=== PATIENT | female | born 1950 | race Caucasian/White ===

== ENCOUNTER → 2016-04-24 | Outpatient (CLI) | payer MEDICARE, BC | LOC: COL.RAD 09:54 | PROVIDERS: Nurse Practitioner | DX: R31.0 Gross hematuria (principal); K63.89 Other specified diseases of intestine | CPT/HCPCS: Q9967 ==

== ENCOUNTER 2016-06-27 17:54 | Emergency (ER) | payer MEDICARE, BC ==
[~2016-06-27] VITALS: Ht 167.6 cm; Wt 66.8 kg
[2016-06-27 17:59] VITALS: TEMP 97.9
[2016-06-27 19:02] LABS: BASO # 0.1 (0.0-0.2); BASO % 0.8 % (0.0-2.0); EOS # 0.6 (0.0-0.7); EOS % 7.1 % (0-4.0); GRAN # 3.2 (1.4-6.5); GRAN % 40.8 % (42.2-75.2); LYMPH # 3.3 (1.2-3.4); LYMPH % 41.5 % (20.0-51.0); MEAN CELL VOLUME 80 fl (80.0-100.0); MEAN CORPUSCULAR HGB CONC 32 g/dl (33.0-37.0); MEAN PLATELET VOLUME 10.6 fl (7.4-10.4); MONO # 0.8 (0.1-0.6); MONO % 9.5 % (1.7-9.3); PLATELET COUNT 262 K/mm3 (130-400); RED BLOOD COUNT 4.31 M/mm3 (4.10-5.30); REDCELL DISTRIBUTION WIDTH-CV 15.3 % (11.5-14.5); WHITE BLOOD COUNT 7.9 K/mm3 (4.8-10.8)
[2016-06-27 19:06] LABS: HEMATOCRIT 34.3 % (37.0-47.0); HEMOGLOBIN 10.8 g/dl (12.5-16.0); MEAN CORPUSCULAR HEMOGLOBIN 25 pg (27.0-31.0)
[2016-06-27 19:28] LABS: ADJUSTED CALCIUM 9.3 mg/dL (8.4-10.2); ALBUMIN 4.3 gm/dL (3.5-5.0); BILIRUBIN,TOTAL 0.5 mg/dL (0.0-1.0); CALCIUM 9.5 mg/dL (8.4-10.2); CREATININE, serum 0.66 mg/dL (0.52-1.25); POTASSIUM 3.6 mmol/L (3.4-5.0)
[2016-06-27 20:36] VITALS: BP 149/71; PULSE 64
== END 2016-06-27 20:36 | disposition home or self-care (01) ==
LOC: COL.ER 17:54
PROVIDERS: Emergency Medicine
DX: M79.651 Pain in right thigh (principal); Z86.718 Personal history of other venous thrombosis and embolism; E11.9 Type 2 diabetes mellitus without complications

== ENCOUNTER → 2016-11-21 | Outpatient (CLI) | payer MEDICARE, BC ==
[~2016-11-21] MED LIST: AMBIEN 5MG TABLE5 MG PO; ASPIRIN 81M81 MG/TA2 PO; GLUCOPHAGE1000 MG PO; GLUCOPHAGE500 MG/TAB PO; HCTZ 25MG TAB25 MG PO; HCTZ12.5TAB PO; KLONOPIN 0.5MG0.5 MG PO; LIPITOR 40MG TA40 MG PO; PRILOTC; PRINIVIL10 MG PO; TENORMIN 5050 MG/TAB PO; ZESTRIL 20MG TA20 MG PO
== END ==
LOC: MC.RAD 10:47
DX: Z12.31 Encounter for screening mammogram for malignant neoplasm of breast (principal)

== ENCOUNTER → 2018-01-12 | Outpatient (CLI) | payer MEDICARE, OTHER | LOC: MC.RAD 11:00 | DX: Z12.31 Encounter for screening mammogram for malignant neoplasm of breast (principal); Z98.890 Other specified postprocedural states; Z98.82 Breast implant status ==

== ENCOUNTER 2019-01-04 17:35 | Emergency (ER) | payer MEDICARE, OTHER ==
[~2019-01-04] VITALS: Ht 165.1 cm; Wt 68.2 kg
[2019-01-04 17:42] VITALS: TEMP 97.7
[2019-01-04 18:21] LABS: BASO % 0.2 % (0.0-2.0); EOS # 0.2 (0.0-0.7); EOS % 1.2 % (0-4.0); GRAN # 11.6 (1.4-6.5); GRAN % 81.9 % (42.2-75.2); HEMATOCRIT 37.5 % (37.0-47.0); HEMOGLOBIN 11.6 g/dl (12.5-16.0); LYMPH # 1.5 (1.2-3.4); LYMPH % 10.3 % (20.0-51.0); MEAN CELL VOLUME 82 fl (80.0-100.0); MEAN CORPUSCULAR HEMOGLOBIN 25 pg (27.0-31.0); MEAN CORPUSCULAR HGB CONC 31 g/dl (33.0-37.0); MEAN PLATELET VOLUME 11.3 fl (7.4-10.4); MONO # 0.8 (0.1-0.6); MONO % 5.8 % (1.7-9.3); PLATELET COUNT 273 K/mm3 (130-400)
[2019-01-04 18:24] LABS: ALBUMIN 4.3 gm/dL (3.5-5.0); BILIRUBIN,TOTAL 0.8 mg/dL (0.0-1.0); C-REACTIVE PROTEIN 7.9 mg/dL (0.0-0.9); CALCIUM 9.6 mg/dL (8.4-10.2); CREATININE, serum 0.59 (0.52-1.25); POTASSIUM 3.9 mmol/L (3.4-5.0); TOTAL PROTEIN 7.7 gm/dL (6.4-8.2)
[2019-01-04 18:28] LABS: COLLECTION METHOD CLEAN CATCH
[2019-01-04] MEDS ORDERED: ZOLOFT 100MG100 MG PO (18:36)
[2019-01-04] MEDS ORDERED: PRILOSEC 20MG20 MG PO (18:37)
[2019-01-04] MEDS ORDERED: GLUCOPHAGE1000 MG PO (18:37)
[2019-01-04] MEDS ORDERED: ZOCOR 40MG40 MG PO (18:38)
[2019-01-04] MEDS ORDERED: ATIVAN 0.50.5 MG/TAB PO (18:38)
[2019-01-04 18:46] LABS: MUCOUS Present /lpf; PH 6 (5-8); SQUAMOUS EPITHELIAL 0-2 /hpf; URINE APPEARANCE Clear; URINE BACTERIA None Seen /hpf; URINE BILIRUBIN Negative (NEGATIVE); URINE BLOOD Negative (NEGATIVE); URINE COLOR Yellow; URINE GLUCOSE Negative (NEGATIVE); URINE KETONE 1+ (NEGATIVE); URINE LEUKOCYTE ESTERASE Negative (NEGATIVE); URINE NITRATE Negative (NEGATIVE); URINE PROTEIN(semi-quant) 2+ (NEGATIVE); URINE RBC 0-2 /hpf
[2019-01-04 19:43] VITALS: BP 153/78; PULSE 72
[2019-01-04] MEDS ORDERED: ZOFRAN ODT4 MG PO (19:56)
== END 2019-01-04 20:11 | disposition home or self-care (01) ==
LOC: COL.ER 17:35
PROVIDERS: Family Medicine
DX: K52.9 Noninfective gastroenteritis and colitis, unspecified (principal); E11.9 Type 2 diabetes mellitus without complications; E86.0 Dehydration; Z90.710 Acquired absence of both cervix and uterus; Z90.89 Acquired absence of other organs; Z79.82 Long term (current) use of aspirin; Z79.84 Long term (current) use of oral hypoglycemic drugs
CPT/HCPCS: J2405; J7030; Q9967

== ENCOUNTER 2019-04-22 07:24 | Day surgery (SDC) | payer MEDICARE ==
[~2019-04-22] VITALS: Ht 165.1 cm; Wt 65.7 kg
[~2019-04-22 07:24] MED LIST changes: +ATIVAN 0.50.5 MG/TAB PO; +PRILOSEC 20MG20 MG PO; +ZOCOR 40MG40 MG PO; +ZOFRAN ODT4 MG PO; +ZOLOFT 100MG100 MG PO
[2019-04-22 08:04] VITALS: BP 158/76; PULSE 62; TEMP 97.5
--- NOTE | 2019-04-22 08:12 | NUR ---
TO RM AT 0735- CALL LIGHT IN REACH AT BEDSIDE.
[2019-04-22] MEDS ORDERED: GLUCOPHAGE XR500 M1 PO (08:23)
[2019-04-22] MEDS ORDERED: FOSAMAX 70MG TA70 MG PO (08:26)
[2019-04-22] MEDS ORDERED: TOPROL XL 50MG50 MG PO (08:27)
[2019-04-22] MEDS ORDERED: LIPITOR 40MG TA40 MG PO (08:27)
[2019-04-22 09:30] VITALS: BP 162/69; PULSE 60; TEMP 97.2
--- NOTE | 2019-04-22 09:30 | NUR ---
Patient arrives to [facility] via cart, accompanied by [facility] RN Shannon. Bedside report received. Patient is alert and oriented. She ambulates to the chair in the room with standby assist. Monitoring applied - VSS and WNL on room air. She denies any pain or nausea. Offered and receives soda and jello.
[2019-04-22 09:45] VITALS: BP 152/66; PULSE 59
[2019-04-22 10:00] VITALS: BP 149/72; PULSE 50
--- NOTE | 2019-04-22 10:10 | NUR ---
Patient has met discharge criteria. Discharge instructions discussed, denies any questions, and verbalizes understanding. PIV removed with catheter intact and hemostasis achieved. Changes to clothing independently. Escorted to the exit via wheelchair by staff. Discharged to home with ride in private vehicle at 1010.
== END 2019-04-22 10:10 | disposition home or self-care (01) ==
LOC: SDCO 07:24
DX: K63.5 Polyp of colon (principal); K57.30 Diverticulosis of large intestine without perforation or abscess without bleeding; E11.9 Type 2 diabetes mellitus without complications; F32.9 Major depressive disorder, single episode, unspecified; I10 Essential (primary) hypertension; K21.9 Gastro-esophageal reflux disease without esophagitis; F41.9 Anxiety disorder, unspecified; Z79.84 Long term (current) use of oral hypoglycemic drugs; Z79.82 Long term (current) use of aspirin; Z90.710 Acquired absence of both cervix and uterus; Z90.79 Acquired absence of other genital organ(s); Z90.721 Acquired absence of ovaries, unilateral; Z85.3 Personal history of malignant neoplasm of breast; Z80.0 Family history of malignant neoplasm of digestive organs; Z82.49 Family history of ischemic heart disease and other diseases of the circulatory system; Z86.010 Personal history of colon polyps; Z90.49 Acquired absence of other specified parts of digestive tract
CPT/HCPCS: J2704; J7030

== ENCOUNTER → 2019-05-03 | Outpatient (CLI) | payer MEDICARE ==
[~2019-05-03] MED LIST changes: +FOSAMAX 70MG TA70 MG PO; +GLUCOPHAGE XR500 M1 PO; +TOPROL XL 50MG50 MG PO
== END ==
LOC: MC.RAD 16:13
DX: Z12.31 Encounter for screening mammogram for malignant neoplasm of breast (principal)

== ENCOUNTER → 2020-05-04 | Outpatient (CLI) | payer MEDICARE | LOC: MC.RAD 09:15 | DX: Z12.31 Encounter for screening mammogram for malignant neoplasm of breast (principal); Z98.890 Other specified postprocedural states; Z87.42 Personal history of other diseases of the female genital tract ==

== ENCOUNTER → 2020-07-12 | Outpatient (CLI) | payer MEDICARE | LOC: COL.VAS 08:29 | DX: I10 Essential (primary) hypertension (principal) ==

== ENCOUNTER → 2023-05-06 | Outpatient (CLI) | payer MEDICARE ==
[~2023-05-06] MED LIST changes: +CRANBERRY500 M3 PO; +EPA FISH OIL1 SGL PO; +MULTI VITAMINS1 TAB PO; +NATURAL E400 IU PO; +NEXIUM 20MG20 MG PO; +NORVASC 5MG5 MG/TAB PO; +VITAMIN C500 MG PO; +VITAMIN D 400400 IU PO
== END ==
LOC: MC.RAD 11:16
DX: Z12.31 Encounter for screening mammogram for malignant neoplasm of breast (principal)